=== PATIENT | male | born 1965 | race Hispanic/Latino ===

== ENCOUNTER 2018-04-21 14:45 | Emergency (ER) | payer BC ==
--- NOTE | 2018-04-21 16:58 | RAD REPORT ---
EXAM DESCRIPTION: RAD - Ankle Right 3 View - 04/21/2018 4:41 pm CLINICAL HISTORY: Right ankle pain status post fall FINDINGS: No fracture or dislocation is seen. Soft tissue swelling is present about the lateral malleolus
--- NOTE | 2018-04-21 17:50 | ER ---
Nurse's Notes [facility] Name: Clem Alan Age: 52 yrs Sex: Male : 1965 Arrival Date: 04/21/2018 Time: 14:47 Bed 10 Private MD: Diagnosis: Sprain of other ligament of right ankle Presentation: 04/21 15:02 Presenting complaint: Patient states: Rolled right ankle when stepping down from truck hb last night, now c/o right ankle swelling and pain 8/10. Transition of care: patient was not received from another setting of care. Onset of symptoms was April 20, 2018. Risk Assessment: Do you want to hurt yourself or someone else? Patient reports no desire to harm self or others. Care prior to arrival: None. 15:02 Method Of Arrival: Wheelchair hb 15:02 Acuity: JAVAN 4 hb 19:32 Initial Sepsis Screen: Does the patient meet any 2 criteria? No. Patient's initial ss sepsis screen is negative. Does the patient have a suspected source of infection? No. Patient's initial sepsis screen is negative. Triage Assessment: 19:32 General: Appears. ss Historical: - Allergies: 15:05 Lisinopril; hb - Home Meds: 15:05 cholesterol medication unknown [Active]; valsartan oral oral [Active]; hb - PMHx: 15:05 Hyperlipidemia; Hypertension; hb - PSHx: 15:05 None; hb - Immunization history:: Adult Immunizations up to date. - Social history:: Smoking status: Patient/guardian denies using tobacco. - Ebola Screening: : No symptoms or risks identified at this time. Screenin:15 Abuse screen: Denies threats or abuse. Denies injuries from another. Nutritional ss screening: No deficits noted. Tuberculosis screening: Never had TB. Fall Risk None identified. Assessment: 17:15 General: R ankle pain that began last night after "rolling ankle" after stepping out of ss truck. . Pain: Complains of pain in right ankle Pain currently is 8 out of 10 on a pain scale. Quality of pain is described as aching, tender, Pain began last night Is continuous. Neuro: Level of Consciousness is awake, alert, obeys commands, Oriented to person, place, time, situation. Cardiovascular: Capillary refill < 3 seconds is brisk in bilateral fingers. Respiratory: Airway is patent Respiratory effort is even, unlabored, Respiratory pattern is regular, symmetrical. GI: No signs and/or symptoms were reported involving the gastrointestinal system. EENT: Nares are clear Oral mucosa is moist. Throat is clear. Derm: Skin is intact, is healthy with good turgor, Skin is pink, warm \\T\\ dry. normal. Musculoskeletal: Swelling present in right ankle. Vital Signs: 15:04 BP 122 / 76; Pulse 88; Resp 16; Temp 98.9; Pulse Ox 97% on R/A; Pain 8/10; hb ED Course: 14:47 Patient arrived in ED. rg4 15:04 Triage completed. hb 15:04 Arm band placed on right wrist. hb 16:01 X-ray completed. Patient tolerated procedure well. Patient taken to [facility]. jb2 16:02 Ankle Right 3 View XRAY In Process Unspecified. EDMS 17:15 Patient has correct armband on for positive identification. Bed in low position. Call ss light in reach. 17:21 Kasandra Gamboa FNP-C is [facility]. kb 17:21 Shekhar Diaz MD is Attending Physician. kb 17:45 Orthoglass splint: Posterior short lleg splint applied on right leg. capillary refill dh3 less than 3 seconds. 18:20 No provider procedures requiring assistance completed. Patient did not have IV access ss during this emergency room visit. Administered Medications: No medications were administered Outcome: 17:50 Discharge ordered by . kb 18:20 Patient left the ED. dm5 18:20 Discharged to home via wheelchair, with family. ss 18:20 Condition: good 18:20 Discharge instructions given to patient, family, Instructed on discharge instructions, follow up and referral plans. Demonstrated understanding of instructions, follow-up care, medications. Signatures: Dispatcher [employer] EDMS Kasandra Gamboa FNP-C FNP-Ckb Markwardt, Deana, RN RN dm Choco Walker jb2 Rylie Carrasquillo RN RN ss Baxter, Heather, RN RN hb Garcia, Rubi rg4 Devorah Jalloh dh3
--- NOTE | 2018-04-21 17:51 | EDPHYS ---
Physician Documentation [facility] Name: Clem Alan Age: 52 yrs Sex: Male : 1965 Arrival Date: 04/21/2018 Time: 14:47 Bed 10 Private MD: ED Physician Shekhar Diaz HPI: 04/21 17:48 This 52 yrs old Male presents to ER via Wheelchair with complaints of Ankle kb Injury. 17:48 The patient presents with an injury, pain, that is acute, swelling, tenderness. The kb complaints affect the right ankle. Onset: The symptoms/episode began/occurred yesterday. Context: The problem was sustained outdoors, resulted from twisted when getting out of truck, The mechanism of injury involved inversion of the affected ankle. The patient can fully bear weight on the affected extremity. the patient is able to ambulate. Associated signs and symptoms: Pertinent positives: swelling, Pertinent negatives: calf tenderness, fever, nausea, numbness, rash, tingling, vomiting, warmth, weakness. Modifying factors: The symptoms are alleviated by nothing, the symptoms are aggravated by weight bearing, movement. Severity of symptoms: At their worst the symptoms were moderate, in the emergency department the symptoms are unchanged. The patient has not experienced similar symptoms in the past. The patient has not recently seen a physician. Historical: - Allergies: 15:05 Lisinopril; hb - Home Meds: 15:05 cholesterol medication unknown [Active]; valsartan oral oral [Active]; hb - PMHx: 15:05 Hyperlipidemia; Hypertension; hb - PSHx: 15:05 None; hb - Immunization history:: Adult Immunizations up to date. - Social history:: Smoking status: Patient/guardian denies using tobacco. - Ebola Screening: : No symptoms or risks identified at this time. ROS: 17:47 Constitutional: Negative for fever, chills, and weight loss, ENT: Negative for injury, kb pain, and discharge, Neck: Negative for injury, pain, and swelling, Cardiovascular: Negative for chest pain, palpitations, and edema, Respiratory: Negative for shortness of breath, cough, wheezing, and pleuritic chest pain, Abdomen/GI: Negative for abdominal pain, nausea, vomiting, diarrhea, and constipation, Back: Negative for injury and pain, Skin: Negative for injury, rash, and discoloration, Neuro: Negative for headache, weakness, numbness, tingling, and seizure. 17:47 MS/extremity: Positive for decreased range of motion, pain, swelling, tenderness, of the right ankle. Exam: 17:47 Constitutional: This is a well developed, well nourished patient who is awake, alert, kb and in no acute distress. Head/Face: Normocephalic, atraumatic. Chest/axilla: Normal chest wall appearance and motion. Nontender with no deformity. No lesions are appreciated. Cardiovascular: Regular rate and rhythm with a normal S1 and S2. No gallops, murmurs, or rubs. Normal PMI, no JVD. No pulse deficits. Respiratory: Lungs have equal breath sounds bilaterally, clear to auscultation and percussion. No rales, rhonchi or wheezes noted. No increased work of breathing, no retractions or nasal flaring. Abdomen/GI: Soft, non-tender, with normal bowel sounds. No distension or tympany. No guarding or rebound. No evidence of tenderness throughout. Skin: Warm, dry with normal turgor. Normal color with no rashes, no lesions, and no evidence of cellulitis. Neuro: Awake and alert, GCS 15, oriented to person, place, time, and situation. Cranial nerves II-XII grossly intact. Motor strength 5/5 in all extremities. Sensory grossly intact. Cerebellar exam normal. Normal gait. 17:47 Musculoskeletal/extremity: Extremities: grossly normal except: noted in the right ankle: decreased ROM, pain, swelling, tenderness, ROM: limited active range of motion due to pain, in the right ankle, Circulation is intact in all extremities. Sensation intact. Weight bearing: able to fully bear weight. Vital Signs: 15:04 BP 122 / 76; Pulse 88; Resp 16; Temp 98.9; Pulse Ox 97% on R/A; Pain 8/10; hb MDM: 17:21 Patient medically screened. kb 17:48 Data reviewed: vital signs, nurses notes. Data interpreted: Pulse oximetry: on room air kb is 97 %. Interpretation: normal. Counseling: I had a detailed discussion with the patient and/or guardian regarding: the historical points, exam findings, and any diagnostic results supporting the discharge/admit diagnosis, radiology results, the need for outpatient follow up, a orthopedic surgeon, to return to the emergency department if symptoms worsen or persist or if there are any questions or concerns that arise at home. 04/21 15:06 Order name: Ankle Right 3 View XRAY; Complete Time: 17:22 hb 04/21 17:34 Order name: Short Leg Splint; Complete Time: 17:46 kb Administered Medications: No medications were administered Disposition: 04/21/18 17:50 Discharged to Home. Impression: Sprain of other ligament of right ankle. - Condition is Stable. - Discharge Instructions: Ankle Sprain, [id number]. - Work release form, Medication Reconciliation Form, Thank You Letter, Antibiotic Education, Prescription Opioid Use form. - Follow up: Emergency Department; When: As needed; Reason: Worsening of condition. Follow up: Private Physician; When: 2 - 3 days; Reason: Recheck today's complaints, Continuance of care, Re-evaluation by your physician. Addendum: 04/28/2018 09:33 Co-signature as Attending Physician, Shekhar Diaz MD I agree with the assessment and k dr plan of care. Signatures: Dispatcher [employer] EDMS Kasandra Gamboa, MERCURY WASHER-C MERCURY WASHER-Sakina Marrero, RN RN dm5 Shekhar Diaz MD MD [facility] Kelsie Anglin RN RN Corrections: (The following items were deleted from the chart) 04/21 17:47 17:34 Crutches ordered. kb dh3 18:20 17:50 04/21/2018 17:50 Discharged to Home. Impression: Sprain of other ligament of dm5 right ankle. Condition is Stable. Forms are Medication Reconciliation Form, Thank You Letter, Antibiotic Education, Prescription Opioid Use. Follow up: Emergency Department; When: As needed; Reason: Worsening of condition. Follow up: Private Physician; When: 2 - 3 days; Reason: Recheck today's complaints, Continuance of care, Re-evaluation by your physician. kb
[2018-04-21 18:42] VITALS: BP 122/76; TEMP 98.9; O2SAT 97
== END 2018-04-21 18:20 | disposition home or self-care (01) ==
LOC: ER 14:45
PROC: 2W3QX1Z Immobilization of Right Lower Leg using Splint (ICD-10-PCS; principal; 2018-04-21)
DX: S93.401A Sprain of unspecified ligament of right ankle, initial encounter (principal); Z88.8 Allergy status to other drugs, medicaments and biological substances; E78.5 Hyperlipidemia, unspecified; I10 Essential (primary) hypertension